=== PATIENT | female | born 1980 | race Caucasian/White ===

== ENCOUNTER 2018-05-01 06:00 | Inpatient (IN) | payer SELFPAY ==
--- NOTE | 2018-05-01 06:24 | HP ---
General Information - Reason for Visit active labor - General Information Maternal Age: 37 Grav: 3 Para: 2 Estimated Due Date: 04/24/18 Determined By: LMP Gestational Age in Weeks/Days: 41 Maternal Blood Type and Rh: O Positive - Results this Serology/RPR Result: Non-Reactive Rubella Result: Immune HBsAg Result: Negative HIV Result: Negative GBS Culture Result: Negative Past Medical History Delivery History: Hx Uncomplicated Vaginal Delivery Pertinent Past Medical History: Non-Contributory Pertinent Past Surgical History: None Pertinent Family History: See Records - HTN, mouth CA, colon CA, high chol, br CA - Antepartal Records Antepartal Records: Reviewed, Complicated by: - AMA Review of Systems Constitutional: Uncomfortable CV Complaint: No Respiratory: Shortness of Breath: No Gastrointestinal: No Nausea/Vomiting Genitourinary: Leaking Fluid, No Dysuria, No Bleeding Musculoskeletal: Contractions Neurological: No Headache, No Visual Changes Movement: Normal Exam - Measurements Height: 5 ft 7.5 in Pre- Weight: 145 lb - Exam Breast: Breast Exam Deferred CVA: No CVA Tenderness Extremities: No Edema Heart: Normal Rhythm/Heart Sounds HEENT: No Significant Findings Lungs: Clear Bilaterally Rectal: Rectal Exam Deferred Reflexes: DTR 2+ Thyroid: No Thyromegaly - Abdominal Exam Abdomen Exam: Fundal Height Consistent with Dates - Ultrasound/Biophysical Profile Ultrasound Status: Not Done Targeted Exam Findings Cervical Exam: 9cm Effacement: 90% Presenting Part: Vertex Membrane Status: Leaking Bleeding/Discharge: Bloody Show EFM Findings - External Monitor Findings Baseline Heart Rate: 140 Contractions: Regular, Moderate, 45-90 Seconds Assessment/Plan - Assessment active labor 37 y.o. , SROM 41weeks EGA - Plan Plan: Admit - Anticipate Vaginal Delivery - Date/Time of Admission Date of Admission: 05/01/18 Time of Admission: 06:00
[2018-05-01] MEDS ORDERED: Lidocaine 2% VISCOUS* 15 ML UDC ONE (07:07)
[2018-05-01] MEDS ORDERED: Glycerin ADULT SUPP PR PRN (07:30)
[2018-05-01] MEDS ORDERED: Witch Hazel PAD* JAR TOPICAL PRN (07:30)
[2018-05-01] MEDS ORDERED: Dibucaine 1% 28.35 GM TUBE PR PRN (07:30)
--- NOTE | 2018-05-01 07:35 | PROCNOTE ---
[facility] OB: Delivery Note - Delivery A Date of : 05/01/18 Time of : 07:10 Sex: Male Score 1 Minute: 8 Score 5 Minutes: 9 Gestational Age in Weeks and Days at Delivery: 41 Weeks and 0 Days Delivery Method: Spontaneous Vaginal Labor: Spontaneous Amniotic Fluid: Clear Estimated Blood Loss: 200 Anesthesia/Analgesia: Nitrous-Labor Delivered By: Stephania Mckeon - Nursery Level of Nursery: Regular/Bedside - Perineum Perineal Injury: Abrasion Only - Not Repaired - Events Delivery Events of Note: None Apply
[2018-05-01] MEDS: Ibuprofen TAB* 600 MG PO PRN ×3 (08:00→20:46)
[2018-05-01] MEDS ORDERED: Simethicone TAB* 80 MG TAB.CHEW PO SCH (08:30)
[2018-05-01] MEDS: Docusate CAP* 100 MG PO SCH ×3 (11:06→20:46)
[2018-05-01] MEDS: Acetaminophen TAB* 325 MG PO PRN ×2 (11:06→17:47)
[2018-05-02] MEDS: Ibuprofen TAB* 600 MG PO PRN ×3 (04:12→19:32)
[2018-05-02 06:54] LABS: ABS Basophils 0 10^3/ul (0-0.2); ABS Eosinophils 0.1 10^3/ul (0-0.6); ABS Lymphocytes 1.8 10^3/ul (1.0-4.8); ABS Monocytes 0.7 10^3/ul (0-0.8); ABS Neutrophils 8.4 10^3/ul (1.5-7.7); ABS Nucleated RBC 0 10^3/ul; Eosinophil % 0.8 % (0-6); Hematocrit 37 % (35-47); Hemoglobin 13.1 g/dl (12.0-16.0); Lymphocyte % 16.4 % (25-47); Mean Corpuscular HGB Conc 35 g/dl (31-36); Mean Corpuscular Hemoglobin 33 pg (27-31); Mean Corpuscular Volume 94 fL (80-97); Mean Platelet Volume 7.7 um3 (7.4-10.4); Nucleated Red Blood Cells % 0; Platelet Count 195 10^3/ul (150-450); Red Cell Distribution Width 12 % (10.5-15)
[2018-05-02] MEDS ORDERED: Ferrous Gluconate TAB* 324 MG TAB PO SCH (09:00)
[2018-05-02] MEDS: Docusate CAP* 100 MG PO SCH ×3 (10:17→19:32)
[2018-05-02] MEDS: Acetaminophen TAB* 325 MG PO PRN ×2 (15:32→19:33)
[2018-05-03] MEDS: Ibuprofen TAB* 600 MG PO PRN ×2 (03:04→09:16)
[2018-05-03] MEDS: Acetaminophen TAB* 325 MG PO PRN ×3 (03:04→12:56)
[2018-05-03 08:29] VITALS: BP 118/70
[2018-05-03] MEDS: Docusate CAP* 100 MG PO SCH ×2 (09:16→12:56)
== END 2018-05-03 14:01 | disposition home or self-care (01) | DRG 807 ==
LOC: MCHOBOUT 06:00 → MCHOB 06:13
PROVIDERS: ADMIT Midwife; ATTEND Midwife
PROC: 10E0XZZ Delivery of Products of Conception, External Approach (ICD-10-PCS; principal; 2018-05-01)
DX: O48.0 Post-term pregnancy (principal); Z37.0 Single live birth; O70.0 First degree perineal laceration during delivery; Z3A.41 41 weeks gestation of pregnancy
CPT/HCPCS: 36415; 85025; A9270-GY